=== PATIENT | male | born 1980 | race Two or more races ===

== ENCOUNTER 2018-01-13 10:23 | Inpatient (IN) | payer OTHER ==
[2018-01-13] MEDS ORDERED: Acetaminophen TAB* 325 MG PO PRN (11:26)
[2018-01-13] MEDS ORDERED: NS 0.9% 1000 ML* 1,000 ML IV SCH (11:30)
[2018-01-13] MEDS ORDERED: Diltiazem CD CAP* 120 MG PO SCH (12:00)
[2018-01-13] MEDS ORDERED: Clopidogrel TAB* 300 MG PO ONE (13:33)
[2018-01-13 15:48] LABS: EGFR Non-African American 97.4 (>60)
--- NOTE | 2018-01-13 22:49 | CATH ---
CARDIAC CATHETERIZATION REPORT: DATE OF PROCEDURE: 01/13/18 - ROOM #ICU-11 INDICATION FOR THE PROCEDURE: The patient presents to [facility] with acute ST-segment elevation diffusely in precordial leads as well as I, II, aVL and with reciprocal change in lead 3, assessed for acute coronary syndrome. The patient is a 37-year-old gentleman with no prior known specific cardiac history, denies any history of myocardial infarction, congestive heart failure, significant heart rhythm disturbance. He presented to [facility] with symptoms that have been on and off since with chest discomfort, with it he feels at times anxious. Because of the persistent nature when he woke up today in the severity of it, he went to the hospital and was found to have acute changes. A STEMI alert was called and he was sent to [facility] for urgent cardiac catheterization. He was seen in the emergency room by myself. The risks and benefits were explained. He understood them and wished to proceed. PROCEDURE AND EQUIPMENT: 1. Procedure approach is right radial artery. 2. Equipment utilized: A. A 6-[place] Glidesheath. B. Diagnostic 5-[place] TIG4 curve catheter for coronary arteriography. C. A 260 length Mcdowell exchange wire. D. Right coronary artery 5-[place] catheter to cannulate the right coronary artery for arteriography. E. A 5-[place] pigtail performed by radial catheter for left heart catheterization. MEDICATIONS RECEIVED: The patient was on a heparin drip 1000 units an hour from [facility] after getting a 4000 bolus. The patient received an additional 2000 units intravenously for an ACT of less than 200. LABORATORY RESULTS: Precatheterization hemoglobin and hematocrit of 14.2 and 40 with a platelet count of 192,000, BUN 11, creatinine 1.0. Sodium 142, potassium 3.7, chloride 105, bicarb 27, total CPK 548 with an MB of 82.9, and troponin of 10.23. DESCRIPTION OF PROCEDURE: The patient was brought into the cardiovascular laboratory where a formal time-out was performed. The right radial artery area was anesthetized with 1% lidocaine after being sterilely draped and prepped. The sheath was placed. Diagnostic imaging for the left coronary artery was performed utilizing the TIG4 catheter and for the right coronary artery utilizing the 5- [place] right coronary artery bypass graft catheter. Following this, left heart catheterization was performed utilizing the 5-[place] Pigtail catheter. At the end of the case, the catheter and sheaths were removed and hemostasis was also obtained with a Vasc Band. The reverse Barbeau was AB. The total contrast used was 104 cc of Omnipaque dye. The radiation exposure included 8.5 minutes of fluoro time. The air kerma radiation was 680 milligray, the DAP radiation was 4490 microgray per meter squared. RESULTS: HEMODYNAMIC DATA: Left heart catheterization revealed central aortic pressure of 113/74 with a mean of 95, left ventricular pressure 114 over left ventricular end diastolic pressure of 17. LEFT VENTRICULOGRAPHY: Performed in the SHELBY projection revealed symmetrical contraction of the left ventricle with no obvious focal wall motion abnormality. There was a hint of possible prolapsing of the mitral valve. CORONARY ARTERIOGRAPHY: A. Left coronary artery: 1. Left main - short in nature and widely patent. 2. Left anterior descending artery - left anterior descending artery had no significant narrowing seen throughout the course of the vessel or within its diagonal branches. It extended to the apical region and on to the distal inferior wall for at least a distal most portion of the inferior wall. There is very minimal narrowing of the ostium of the LAD of approximately 10-20%. 3. Circumflex artery - a nondominant vessel supplying a thin first and second obtuse marginal branch with a moderate size third and fourth obtuse marginal branch followed by 2 posterior left ventricular branches and a branch that parallel to the PDA. B. Right coronary artery: A dominant vessel supplying a PDA and a very small caliber posterior left ventricular branch. There was the vessels only extended to the most proximal toward the mid portion of the inferior wall, but the rest of the inferior wall supplied by the left anterior descending artery. The caliber of the PDA in the posterior left ventricular branch were very thin in nature. No focal stenosis was seen in the body of the right coronary artery. OVERALL ASSESSMENT: Normal left ventricular function with question of possible mitral valve prolapse. No significant coronary artery disease with very mild osteal narrowing of the left anterior descending of 10-20%. At this point in time, consideration for coronary artery spasm is raised and we will start the patient on diltiazem long acting of 120 mg a day to be increased to 180 mg a day and we will also add clopidogrel to the regimen on a daily basis for the next 6 months with consideration to stopping it after 6 months or unless there is a bleeding issue.We will also start atorvastatin to stabilize the ostial LAD lesion. [id number]/[facility] #: [id number] [facility] HEALTHNilesh
[2018-01-14 06:26] LABS: ABS Basophils 0 10^3/ul (0-0.2); ABS Eosinophils 0.1 10^3/ul (0-0.6); ABS Lymphocytes 1.1 10^3/ul (1.0-4.8); ABS Monocytes 0.4 10^3/ul (0-0.8); ABS Neutrophils 3.4 10^3/ul (1.5-7.7); ABS Nucleated RBC 0 10^3/ul; Eosinophil % 2.2 % (0-6); Hematocrit 38 % (42-52); Hemoglobin 13.4 g/dl (14.0-18.0); Lymphocyte % 21.2 % (25-47); Mean Corpuscular HGB Conc 35 g/dl (31-36); Mean Corpuscular Hemoglobin 32 pg (27-31); Mean Corpuscular Volume 90 fL (80-94); Mean Platelet Volume 7.7 um3 (7.4-10.4); Nucleated Red Blood Cells % 0.1; Platelet Count 181 10^3/ul (150-450); Red Blood Count 4.22 10^6/ul (4.00-5.40); Red Cell Distribution Width 12 % (10.5-15)
[2018-01-14 06:42] LABS: EGFR Non-African American 97.4 (>60)
[2018-01-14] MEDS ORDERED: VERAPAMIL 2.5 MG/ML 2 ML VIAL ** 5 mg/2 ml ONE (08:31)
[2018-01-14] MEDS ORDERED: nitroGLYCERIN DRIP* 25,000 MCG/250 ML BTL ONE (08:31)
[2018-01-14] MEDS ORDERED: Heparin(*) 1000 UNIT/ML 10 ML VIAL CATH LAB IV ONE (08:31)
[2018-01-14] MEDS ORDERED: Lidocaine 1% INJ* 10 MG/ML 30 ML SDV ONE (08:31)
[2018-01-14] MEDS ORDERED: Iohexol 350 (CONTRAST) 200 ML MDV IV ONE (08:31)
[2018-01-14] MEDS ORDERED: Heparin 2 UNITS/ML IVPREMIX* 2,000 ML IV ONE (08:31)
[2018-01-14] MEDS: Clopidogrel TAB* 75 MG PO SCH (09:11)
[2018-01-14] MEDS: Aspirin EC TAB* 81 MG TAB.EC PO SCH (09:11)
[2018-01-14] MEDS: Diltiazem CD CAP* 180 MG PO SCH (09:11)
--- NOTE | 2018-01-14 09:12 | ECHO ---
Patient: [facility] NICHOLE [facility] Rec#: [id number] : 1980 Date: 01/14/2018 Age: 37y Height: 180.34 cm / 71.0 in Weight: 76.2 kg / 167.9 lbs Sex: M BSA: 1.96 Room#: [facility] Admit Date#: 01/13/2018 Type: Inpatient Referring: Derrick Sanchez MD Reading: Derrick Sanchez MD Retail Marketing Manager: [facility] Tran[facility]horacic Echocardiogram Indication: STEMI BP: 102/57 HR: 57 Rhythm: Bradycardia Findings History: Chest discomfort progressing to chest pain since August 2017, former smoker. Technical Comments: The study quality is good. Completed at 0825. Left Ventricle: The left ventricular chamber size is normal. There is no left ventricular hypertrophy. Global left ventricular wall motion and contractility are within normal limits. There is normal left ventricular systolic function. The estimated ejection fraction is 55-60%. Normal left ventricular diastolic filling is observed. Left Atrium: The left atrium is slightly dilated. Right Ventricle: Moderator Band present. The right ventricle is mildly dilated. The right ventricular global systolic function is low normal. Right Atrium: The right atrium is mildly dilated. Aortic Valve: The aortic valve is trileaflet. There is no evidence of aortic valve thickening. There is a trace of aortic regurgitation. There is no evidence of aortic stenosis. Mitral Valve: The mitral valve leaflets do not appear thickened. There is trace to mild mitral regurgitation. There is no evidence of mitral stenosis. Tricuspid Valve: The tricuspid valve leaflets are normal. There is trace tricuspid regurgitation. The right ventricular systolic pressure is estimated at 27 mmHg. No pulmonary hypertension is noted. There is no tricuspid stenosis. Pulmonic Valve: The pulmonic valve appears normal. There is a trace pulmonic regurgitation. There is no pulmonic stenosis. Pericardium: There is no significant pericardial effusion. Aorta: There is no dilatation of the ascending aorta. There is no dilatation of the aortic arch. The aortic root is normal in size. Pulmonary Artery: The main pulmonary artery appears normal. Venous: The inferior vena cava is dilated. There is a greater than 50% respiratory change in the inferior vena cava dimension. Conclusions There is no left ventricular hypertrophy. There is normal left ventricular systolic function. There is no left ventricular hypertrophy. There is normal left ventricular systolic function. The estimated ejection fraction is 55-60%. Normal left ventricular diastolic filling is observed. There is a trace of aortic regurgitation. There is trace to mild mitral regurgitation. There is trace tricuspid regurgitation. There is a trace pulmonic regurgitation. No reports of prior studies are offered for comparison. Measurements Name Value Normal Range RVIDd (AP) 2D 3.2 cm (0.9 - 2.6) RVDdMajor (2D) 4.5 cm (2.2 - 4.4) RAd ISD 4CH 5.4 cm (3.4 - 4.9) RA (A4C)W 4.5 cm (2.9 - 4.6) IVSd (2D) 0.9 cm (0.6 - 1) LVPWd (2D) 1 cm (0.6 - 1) LVIDd (2D) 4.9 cm (3.6 - 5.4) LVIDs (2D) 3.3 cm - LV FS (2D) 32 % (25 - 45) Aortic Annulus 2.1 cm (1.4 - 2.6) Ao root diameter (2D) 2.9 cm (2.1 - 3.5) Ascending Ao 3 cm (2.1 - 3.4) Aortic arch 2 cm (1.8 - 3.4) LA dimension (AP) 2D 3.5 cm (2.3 - 3.8) LAd ISD 4CH 5.6 cm (2.9 - 5.3) LA ISD 4CH W 4.1 cm (2.5 - 4.5) Name Value Normal Range LA ESV SP 4CH (A/L) 54 ml - LA ESV SP 2CH (A/L) 55 ml - LA ESV BP (A/L) 57 ml - LA ESV BP (A/L) index 29 ml/m2 - LA ESV SP 4CH (MOD) 50 ml - LA ESV SP 2CH (MOD) 52 ml - Name Value Normal Range MV E-wave Vmax 0.89 m/sec - MV deceleration time 249 msec - MV A-wave Vmax 0.32 m/sec - MV E:A ratio 2.82 ratio - LV septal e' Vmax 0.1 m/sec - LV lateral e' Vmax 0.15 m/sec - LV E:e' septal ratio 8.9 ratio - LV E:e' lateral ratio 5.93 ratio - Name Value Normal Range AV Vmax 1.42 m/sec - AV VTI 29.07 cm - AV peak gradient 8.12 mmHg - AV mean gradient 4.68 mmHg - LVOT Vmax 1.19 m/sec - LVOT VTI 22.37 cm - LVOT peak gradient 5.72 mmHg - LVOT mean gradient 3.08 mmHg - JUSTA Vmax 1.3 m/sec - Name Value Normal Range TR Vmax 2.2 m/sec - TR peak gradient 19 mmHg - RAP 8 mmHg - RVSP 27 mmHg - IVC diameter 2.1 cm - Name Value Normal Range PV Vmax 0.84 m/sec - PV peak gradient 2.88 mmHg -
[2018-01-14] MEDS: Atorvastatin* 40 MG TAB PO SCH ×2 (11:38→20:51)
[2018-01-15] MEDS: Diltiazem CD CAP* 180 MG PO SCH (08:09)
[2018-01-15] MEDS: Aspirin EC TAB* 81 MG TAB.EC PO SCH (08:09)
[2018-01-15] MEDS: Clopidogrel TAB* 75 MG PO SCH (08:09)
[2018-01-15 12:43] VITALS: BP 119/73
--- NOTE | 2018-01-16 00:48 | HP ---
[place] * ADMISSION HISTORY AND PHYSICAL: DATE OF ADMISSION: 01/13/18 CHIEF COMPLAINT: Chest discomfort. HISTORY OF PRESENT ILLNESS: A 37-year-old white male with a history of similar episode of chest discomfort in August 2017 where he was seen in an emergency room in [place] and told that he had anxiety. Since that time, he has had intermittently the symptom of which he presented today only in a milder form. Starting on of last week, he had the onset of chest discomfort feeling like a heavy sensation with shortness of breath at times that was present on and off since that time. Today, he woke up with more severe discomfort and went to [facility] where EKG demonstrated diffuse ST segment elevation in I, aVL, lead II, V2 through V6 with depression in lead III. He was given a total of 3 nitroglycerin and had significant improvement of the ST segments. Interestingly, the laboratory results from [facility] revealed a troponin of 10.23, CPK of 548, MB of 82.9, and an SGOT of 56. STEMI alert was called and the patient was subsequently transferred over. Repeat EKG was done in the ambulance on the way over and showed further improvement with virtually normal ST segments. In the ER, he had mild chest discomfort still present at 1 to 2/10 at most. The risks and benefits of cardiac catheterization were explained. He understood them and wished to proceed. He adamantly denied any drug usage, but does state that he was under significant stress. He received 4000 units of heparin bolus at [facility] and a heparin drip at 1000 units an hour was started at [place] and he had 325 mg of aspirin at [place]. PAST MEDICAL HISTORY: He denies any history of hypertension, hyperlipidemia, diabetes. MEDICATIONS: He is not currently any specific medications. FAMILY HISTORY: No history of early coronary artery disease in the family. SOCIAL HISTORY: He has a very low cigarette usage in the past. REVIEW OF SYSTEMS: Pertinent to proceeding to the cardiovascular laboratory. He denied any hematochezia, hematemesis, or hematuria. He denied any history of stroke, TIA, or kidney disease and he does not have a dye allergy. PHYSICAL EXAMINATION VITAL SIGNS: Briefly, in the emergency room in order to do a ER bypass with the patient revealed blood pressure roughly in the 110/80 range, ambulance pulse was 60, respirations 16, NECK: Supple. No increased JVP. LUNGS: Clear. HEART: Had a regular rate and rhythm without murmur. ABDOMEN: Soft, nontender. EXTREMITIES: Without edema. Femoral pulses were good bilaterally without bruit. NEUROLOGIC: The patient is alert and oriented with normal mentation. MUSCULOSKELETAL: The patient moved all extremities appropriately. PSYCHOLOGICAL: The patient with normal affect. DIAGNOSTIC STUDIES/LAB DATA: EKGs were reviewed as discussed above. ASSESSMENT AND PLAN: The patient is with acute coronary syndrome with reversible ST segment changes with nitrates. Consideration for an unstable plaque versus coronary artery spasm. Cardiac catheterization indicated for assessing for the presence of significant coronary artery disease. The risks and benefits were explained. He understood them and wished to proceed. Further management will be made in the cardiovascular laboratory. [id number]/[facility] #: [id number] MTDD
--- NOTE | 2018-01-16 11:30 | DS ---
CC: Dr. Edward Diggs [place], [place] * DISCHARGE SUMMARY: DATE OF ADMISSION: 01/13/18 DATE OF DISCHARGE: 01/15/18 FINAL DIAGNOSIS: Probable coronary artery spasm. HOSPITAL COURSE: The patient is a pleasant 37-year-old gentleman who was in his usual state of health and last week on noted the onset of chest pressure sensation. He felt very anxious with this and short of breath. He had it on and off since and eventually on Sunday it became so severe that he presented to [facility]. In the emergency room at [facility], the EKG demonstrated ST segment elevation diffusely in leads I, II, aVL, and the precordial leads. A STEMI alert was called and we were notified of this and the patient was transported to [facility]. At [facility], he was brought emergently to the cardiovascular laboratory after receiving heparin therapy and being placed on a heparin drip at [facility] and given a full aspirin. The Brilinta was initially on hold. The patient was brought to the cardiovascular laboratory and cardiac catheterization revealed only minimal disease in the ostium of the LAD, perhaps some 20% at worst. His overall left ventricular systolic function appeared to be normal. Interestingly, initial cardiac enzymes at [facility] revealed the troponin already elevated at 10 and during the course of this hospitalization at [facility], it peaked at 20 immediately on the second value 6 hours after Arturo's and went down from there. The CPK peaked at 711 with an MB of 129. His sed rate was found to be 27. His C-reactive protein was 63.71. His toxicology revealed no evidence of cocaine in his urine. During the course of the hospitalization, he was started on calcium channel marcin for the presumed diagnosis of coronary artery spasm and also placed on aspirin and clopidogrel therapy. He was placed on atorvastatin 40 mg a day as well. He had an echocardiogram performed that revealed normal left ventricular systolic function with no focal wall motion abnormalities. There was a question of trace-to- mild mitral regurgitation, trace tricuspid and aortic regurgitation, and trace pulmonic regurgitation. He was eventually up and about and discharged home on 01/15/18. MEDICATIONS: On discharge included: 1. Baby aspirin 81 mg once a day. 2. Atorvastatin 40 mg a day. 3. Clopidogrel 75 mg a day. 4. Diltiazem long acting 180 mg a day. 5. Sublingual nitroglycerin as needed. The patient will be following up with his primary doctor that is Dr. Edward Diggs up in [place], [place]. On the day of discharge, the patient was seen by Dr. Brijesh Aponte, my partner, and found the patient stable for discharge. He has a wound check appointment set up with me on 01/24/18 at 3:00 p.m. if he does not go back to [place] sooner. As mentioned, he will also be following up with his primary care physician. [id number]/[facility] #: [id number] MTDNilesh
== END 2018-01-15 16:12 | disposition home or self-care (01) | DRG 192 ==
LOC: CHICATH 10:23 → ICU 11:21 → MEDTELE 01-14 20:24
PROVIDERS: ADMIT Internal Medicine Cardiovascular Disease; ATTEND Internal Medicine Cardiovascular Disease
PROC: B211YZZ Fluoroscopy of Multiple Coronary Arteries using Other Contrast (ICD-10-PCS; 2018-01-13)
PROC: 4A023N7 Measurement of Cardiac Sampling and Pressure, Left Heart, Percutaneous Approach (ICD-10-PCS; principal; 2018-01-13 10:15)
DX: I20.1 Angina pectoris with documented spasm (principal); R74.8 Abnormal levels of other serum enzymes; R07.9 Chest pain, unspecified
CPT/HCPCS: 36415; 76937; 80053; 80061; 80307; 82550; 82553; 84484; 85025; 85379; 85652; 86141; 87641; 93005; 93306; 93458; 99406; A9270-GY; J1644